=== PATIENT | female | born 1955 | race Caucasian/White ===

== ENCOUNTER 2017-10-30 14:16 | Emergency (ER) | payer BC ==
[2017-10-30] MEDS ORDERED: LIDOCAINE 1% (MDV) 10 ML INJ INJ (15:30)
[2017-10-30] MEDS ORDERED: LIDOCAINE 1% (MDV) 20 ML INJ (15:40)
[2017-10-30] MEDS: DIPHTH/TET/ACEL PERTUSS (ADULT) 0.5 ML VIAL IM (15:42)
[2017-10-30] MEDS: LIDOCAINE 1% (MDV) 20 ML INJ SC (15:45)
== END 2017-10-30 16:49 | disposition home or self-care (01) ==
LOC: FTE 14:16
DX: S61.217A Laceration without foreign body of left little finger without damage to nail, initial encounter (principal); S61.215A Laceration without foreign body of left ring finger without damage to nail, initial encounter; I10 Essential (primary) hypertension; W26.0XXA Contact with knife, initial encounter; Y92.9 Unspecified place or not applicable; Z23 Encounter for immunization
CPT/HCPCS: 12002; 90471; 90715; 99283-25

== ENCOUNTER 2017-11-07 12:25 | Emergency (ER) | payer BC | END 2017-11-07 14:13 | disposition home or self-care (01) | LOC: E/R 12:25 | DX: T81.4XXA Infection following a procedure, initial encounter (principal); I10 Essential (primary) hypertension; Y82.8 Other medical devices associated with adverse incidents; Z48.02 Encounter for removal of sutures | CPT/HCPCS: 99284 ==

== ENCOUNTER 2017-11-15 04:52 | Emergency (ER) | payer BC ==
[2017-11-15] MEDS: NITROGLYCERIN (SL) 0.4 MG TAB SL (05:22)
[2017-11-15] MEDS: morphine 4 MG/ML VIAL IV (05:22)
[2017-11-15] MEDS: ASPIRIN 325 MG TAB PO (05:22)
[2017-11-15] MEDS: ONDANSETRON 4 MG INJ IV (05:22)
[2017-11-15] MEDS: METOCLOPRAMIDE 10 MG INJ IV (05:22)
[2017-11-15 05:44] LABS: ADD MAN DIFF? NO
[2017-11-15 05:45] LABS: WHITE BLOOD COUNT 15.7 10^3/ul (4.8-10.8)
[2017-11-15 05:45] LABS: BASOPHIL # 0.1 10^3/ul (0.0-0.1); BASOPHILS % 0.6 % (0.0-2.0); EOSINOPHILS # 1.4 10^3/ul (0.0-0.5); EOSINOPHILS % 8.7 % (0.0-7.0); HEMATOCRIT 40.2 % (37.0-47.0); HEMOGLOBIN 12.8 g/dl (12.0-16.0); LYMPHOCYTES # 2.7 10^3/ul (0.8-2.9); MEAN CORPUSCULAR HGB CONC 31.8 g/dl (32.0-37.0); MEAN CORPUSCULAR VOLUME 94.4 fl (82.0-101.0); MEAN PLATELET VOLUME 10.1 fl (7.4-10.4); MONOCYTE # 0.6 10^3/ul (0.3-0.9); MONOCYTES % 3.6 % (0.0-11.0); NEUTROPHIL # 10.9 10^3/ul (1.6-7.5); NEUTROPHILS % 69.7 % (39.0-77.0); PLATELET COUNT 235 10^3/UL (140-415); RED BLOOD COUNT 4.26 10^6/ul (4.20-5.40); RED CELL DISTRIBUTION WIDTH 13.9 % (11.5-14.5)
[2017-11-15] MEDS ORDERED: EPINEPHrine 0.1 MG/ML SYG ×3 (05:52→07:00)
[2017-11-15] MEDS ORDERED: NA BICARBONATE 8.4% 50 ML SYG ×2 (05:58→07:00)
[2017-11-15 06:14] LABS: INR 0.94; PROTIME 12.7 Sec (11.9-14.9)
[2017-11-15 06:15] LABS: PARTIAL THROMBOPLASTIN TIME 36.1 Sec (25.0-35.0)
[2017-11-15 06:21] LABS: ALANINE AMINOTRANSFERASE 35 IU/L (13-69); ALBUMIN 4.2 g/dl (3.3-4.9); ALKALINE PHOSPHATASE 129 IU/L (42-121); ANION GAP 14 (8-16); ASPARTATE AMINO TRANSFERASE 22 IU/L (15-46); BILIRUBIN,INDIRECT 0.3 mg/dl (0-1.1); BILIRUBIN,TOTAL 0.3 mg/dl (0.2-1.3); BLOOD UREA NITROGEN 19 mg/dl (7-20); CALCIUM 9.4 mg/dl (8.4-10.2); CARBON DIOXIDE 27 mmol/L (21-31); CHLORIDE 104 mmol/L (97-110); CREATINE KINASE 140 IU/L (23-200); CREATININE 0.78 mg/dl (0.44-1.00); GLUCOSE 131 mg/dl (70-220); POTASSIUM 3.7 mmol/L (3.5-5.1); SODIUM 141 mmol/L (135-144)
[2017-11-15 06:28] LABS: LACTIC ACID 2.1 mmol/L (0.5-2.0)
[2017-11-15 06:32] LABS: B-TYPE NATRIURETIC PEPTIDE 3770 PG/ML (0-125); CK INDEX 1.1; CK-MB 1.56 ng/ml (0.0-2.4); TROPONIN-I 0.031 ng/ml (0.00-0.12)
[2017-11-15] MEDS ORDERED: ROCURONIUM 50 MG INJ (07:00)
[2017-11-15] MEDS ORDERED: NORepinephrine 8MG/250 ML BAG (07:00)
[2017-11-15] MEDS ORDERED: CA CHLORIDE 10% 10 ML SYRINGE (07:00)
[2017-11-15] MEDS ORDERED: ETOMIDATE 20 MG INJ (07:00)
== END 2017-11-15 12:07 | disposition expired ==
LOC: E/R 04:52
DX: J81.0 Acute pulmonary edema (principal); I46.9 Cardiac arrest, cause unspecified; I10 Essential (primary) hypertension; R40.2142 Coma scale, eyes open, spontaneous, at arrival to emergency department; R40.2252 Coma scale, best verbal response, oriented, at arrival to emergency department; R40.2342 Coma scale, best motor response, flexion withdrawal, at arrival to emergency department; Z95.810 Presence of automatic (implantable) cardiac defibrillator
CPT/HCPCS: 31500; 36415; 71045; 76937; 80053; 82550; 82553; 82962; 83605; 83880; 84484; 85025; 85610; 85730; 87040; 92950; 93005; 96374; 96375; 99285-25